=== PATIENT | male | born 2000 | race Caucasian/White ===

== ENCOUNTER 2018-12-30 14:57 | Emergency (ER) | payer OTHER ==
[~2018-12-30] VITALS: Ht 177.8 cm; Wt 111.6 kg
[2018-12-30 15:03] VITALS: Ht 177.8 cm; Wt 111.6 kg
[2018-12-30 17:46] VITALS: BP 135/73
== END 2018-12-30 18:17 | disposition home or self-care (01) ==
LOC: ED 14:57
DX: S52.502A Unspecified fracture of the lower end of left radius, initial encounter for closed fracture (principal); S52.612A Displaced fracture of left ulna styloid process, initial encounter for closed fracture; S39.92XA Unspecified injury of lower back, initial encounter; Z88.8 Allergy status to other drugs, medicaments and biological substances; W11.XXXA Fall on and from ladder, initial encounter; Y93.89 Activity, other specified; Y92.89 Other specified places as the place of occurrence of the external cause; Y99.8 Other external cause status